=== PATIENT | female | born 1970 ===

== ENCOUNTER 2018-07-22 09:00 | Outpatient (CLI) | payer OTHER ==
[2018-07-22] MEDS ORDERED: LACT1CAP43 PO (10:15)
[2018-07-22] MEDS ORDERED: VITAMIN PACK PO (10:15)
[2018-07-22] MEDS ORDERED: NORE5TAB PO (10:15)
[2018-07-22] MEDS ORDERED: [UNRECOGNIZED DRUG - OTHER] PO (10:15)
[2018-07-22] MEDS ORDERED: ZINC220C4 PO (10:15)
[2018-07-22] MEDS ORDERED: VALA500T PO (10:15)
[2018-07-22] MEDS ORDERED: CYAN500T2 PO (10:15)
== END 2018-07-22 23:59 | disposition home or self-care (01) ==
LOC: STAR 09:00
PROVIDERS: ATTEND Specialist
DX: Z02.9 Encounter for administrative examinations, unspecified (principal)

== ENCOUNTER 2018-07-27 07:36 | Day surgery (SDC) | payer OTHER ==
[~2018-07-27] VITALS: Ht 158.8 cm; Wt 64.7 kg
[~2018-07-27 07:36] MED LIST: CYAN500T2 PO; LACT1CAP43 PO; NORE5TAB PO; VALA500T PO; VITAMIN PACK PO; ZINC220C4 PO; [UNRECOGNIZED DRUG - OTHER] PO
[2018-07-27] MEDS ORDERED: LACTATED RINGERS 1,000 ML IV SCH (07:43)
[2018-07-27 09:12] LABS: HCG UR SG 1.014 (1.003-1.030)
[2018-07-27] MEDS ORDERED: FLUORESCEIN SODIUM 500 MG/5 ML ONE (10:39)
[2018-07-27] MEDS ORDERED: BUPIVACAINE/PF 0.25% ONE (10:39)
[2018-07-27] MEDS ORDERED: GABAPENTIN 300 MG CAPSULE ONE (10:40)
[2018-07-27] MEDS ORDERED: ACETAMINOPHEN 500 MG TABLET ONE (10:40)
[2018-07-27] MEDS ORDERED: MIDAZOLAM 1 MG/ML, 2ML ONE (10:45)
[2018-07-27] MEDS ORDERED: FENTANYL PF 250 MCG/5ML ONE (10:45)
[2018-07-27] MEDS ORDERED: DEXAMETHASONE 4 MG/ML, 1ML ONE (12:20)
[2018-07-27] MEDS ORDERED: GLYCOPYRROLATE 0.2MG/1ML, 5ML ONE (12:20)
[2018-07-27] MEDS ORDERED: PROPOFOL 10 MG/ML, 20ML ONE (12:20)
[2018-07-27] MEDS ORDERED: SUCCINYLCHOLINE 20 MG/ML, 10ML ONE (12:20)
[2018-07-27] MEDS ORDERED: ONDANSETRON 2MG/ML, 2ML ONE (12:20)
[2018-07-27] MEDS ORDERED: CEFAZOLIN 1,000 MG ONE (12:20)
[2018-07-27] MEDS ORDERED: NEOSTIGMINE 1 MG/ML, 10ML ONE (12:20)
[2018-07-27] MEDS ORDERED: ROCURONIUM 10MG/ML,5ML ONE (12:20)
[2018-07-27] MEDS ORDERED: PROMETHAZINE 25 MG/ML, 1ML IV PRN (12:30)
[2018-07-27] MEDS ORDERED: HYDROmorphone 2 MG/ML, 1ML IVPush PRN (12:30)
[2018-07-27] MEDS ORDERED: LABETALOL 5MG/ML, 20ML IV PRN (12:30)
[2018-07-27] MEDS ORDERED: HALOPERIDOL 5 MG/ML IV PRN (12:30)
[2018-07-27] MEDS ORDERED: hydrALAzine 20 MG/ML, 1ML IV PRN (12:30)
[2018-07-27] MEDS ORDERED: OXYcodone 5 MG/5 ML ORAL.SOL UDC PO PRN (12:30)
[2018-07-27] MEDS ORDERED: ALBUTEROL SULFATE 2.5 MG/3 ML NPPB PRN (12:30)
[2018-07-27] MEDS ORDERED: FENTANYL PF 100 MCG/2ML ONE (12:45)
[2018-07-27] MEDS ORDERED: OXYcodone 5 MG/5 ML ORAL.SOL UDC ONE (12:45)
[2018-07-27] MEDS: FENTANYL PF 100 MCG/2ML IV PRN ×2 (12:48→13:17)
[2018-07-27] MEDS ORDERED: HYDROmorphone 2 MG/ML, 1ML ONE (12:57)
== END 2018-07-27 16:10 | disposition home or self-care (01) ==
LOC: OR 07:36
PROVIDERS: ATTEND Specialist
DX: D25.1 Intramural leiomyoma of uterus (principal); N88.8 Other specified noninflammatory disorders of cervix uteri; N80.0 Endometriosis of uterus; Z72.89 Other problems related to lifestyle; Z79.899 Other long term (current) drug therapy; Z98.51 Tubal ligation status; Z98.890 Other specified postprocedural states; Z83.3 Family history of diabetes mellitus; Z82.49 Family history of ischemic heart disease and other diseases of the circulatory system; Z80.8 Family history of malignant neoplasm of other organs or systems
CPT/HCPCS: 58571; 81025; 88307; J0330; J0690; J1100; J1170; J2250; J2405; J2704; J2710; J3010; J3490; J7120; S2900